=== PATIENT | male | born 1935 | race Caucasian/White ===

== ENCOUNTER 2018-10-04 14:37 | Inpatient (IN) | payer MEDICARE, MEDICAID ==
[~2018-10-04] VITALS: Ht 182.9 cm; Wt 131.2 kg
[2018-10-04] VITALS (10 sets, daily range): BP systolic 130–174; BP diastolic 60–113
[2018-10-04] MEDS ORDERED: SENN-161 PO (15:31)
[2018-10-04] MEDS ORDERED: FURO80TA87 PO (15:31)
[2018-10-04] MEDS ORDERED: ASPI-611 PO (15:31)
[2018-10-04] MEDS ORDERED: CLOP75TA15 PO (15:31)
[2018-10-04] MEDS ORDERED: DULR RC (15:31)
[2018-10-04] MEDS ORDERED: ALBU0.63 NEB (15:31)
[2018-10-04] MEDS ORDERED: HYDR-4383 PO (15:31)
[2018-10-04] MEDS ORDERED: NA P133E4 RC (15:31)
[2018-10-04] MEDS ORDERED: CLON0.1T20 PO (15:31)
[2018-10-04] MEDS ORDERED: DOCU-28 PO (15:31)
[2018-10-04] MEDS ORDERED: POTA10TA15 PO (15:31)
[2018-10-04] MEDS ORDERED: MAGN400O6 PO (15:31)
[2018-10-04] MEDS ORDERED: ALLO100T PO (15:31)
[2018-10-04] MEDS ORDERED: LEVO125T PO (15:31)
[2018-10-04] MEDS ORDERED: UBID100C16 PO (15:31)
[2018-10-04] MEDS ORDERED: ATOR40TA PO (15:31)
[2018-10-04] MEDS ORDERED: LIDOcaine 1% (10mg/ml)w/preservative injection 20ml MDV ONE (16:29)
[2018-10-04] MEDS ORDERED: heparin 1,000unit/ml 10ml vial 10 ML ONE (16:29)
[2018-10-04] MEDS ORDERED: iohexol 350MG/ML 100ml bottle IV ONE (16:30)
[2018-10-04] MEDS ORDERED: phenylephrine 10mg/ml inj. ONE (16:30)
[2018-10-04] MEDS ORDERED: iohexol 350 MG/ML 50ML vial IV ONE (16:30)
[2018-10-04] MEDS ORDERED: LORazepam 0.5 MG tablet PO PRN (16:45)
[2018-10-04] MEDS ORDERED: diphenhydrAMINE 25mg capsule PO PRN (16:45)
[2018-10-04] MEDS ORDERED: iohexol 350 MG/1 ML 200ml bottle ONE (17:32)
[2018-10-04] MEDS ORDERED: clopidogrel 300mg tablet ONE (17:40)
[2018-10-04] MEDS ORDERED: metoprolol tartrate 1mg/ml inj IV ONE (17:41)
[2018-10-04] MEDS: normal saline 1000ml 1,000 ML IV SCH (19:17)
[2018-10-04] MEDS ORDERED: HYDROcodone/acetaminophen 5mg/325mg tablet PO PRN ×2 (20:45→20:50)
[2018-10-04] MEDS ORDERED: bisacodyl 10mg suppository rectal RC PRN (20:45)
[2018-10-04] MEDS ORDERED: non-formulary drug (Na Phos,M-B/Na Phos,Di-Ba* (Fleet's Enema*) 1 BOTTLE) RC SCH (20:45)
[2018-10-04] MEDS ORDERED: magnesium hydroxide 30ml (MOM) UD suspension PO PRN (20:45)
[2018-10-04] MEDS: DOPamine 400mg/D5W 250ml 250 ML IV SCH (20:50)
[2018-10-04] MEDS ORDERED: proCHLORperazine 10 MG/2 ml inj IV PRN (20:50)
[2018-10-04] MEDS ORDERED: hydrALAZINE 20mg/ml inj. IV PRN (20:50)
[2018-10-04] MEDS ORDERED: OXAZEpam 15mg capsule PO PRN (20:50)
[2018-10-04] MEDS ORDERED: acetaminophen 325mg tablet PO PRN (20:50)
[2018-10-04] MEDS ORDERED: HYDROcodone/acetaminophen 10/325mg tab PO PRN (20:50)
[2018-10-04] MEDS ORDERED: pseudoephedrine 30mg tablet PO PRN (20:50)
[2018-10-04] MEDS ORDERED: cloNIDine 0.1 mg tablet PO SCH (21:00)
[2018-10-04] MEDS ORDERED: sennosides 8.6mg tablet PO SCH (21:00)
[2018-10-04] MEDS: furosemide 40mg tablet PO SCH (21:13)
[2018-10-04] MEDS: potassium chloride 10mEq ER tablet PO SCH (21:14)
[2018-10-05] MEDS: albuterol 2.5 MG/3 ML nebule NEB SCH ×2 (00:33→08:51)
[2018-10-05 02:07] VITALS: BP 127/42
[2018-10-05 02:21] VITALS: BP 132/64
[2018-10-05] MEDS: normal saline 1000ml 1,000 ML IV SCH (02:45)
[2018-10-05 03:00] VITALS: BP 132/64
[2018-10-05 06:34] LABS: BASOPHILS % (AUTO) 0.4 % (0-1); EOSINOPHILS # (AUTO) 0.2 X10'3 (0-0.9); EOSINOPHILS % (AUTO) 2.7 % (0-6); HEMATOCRIT 35.6 % (42.0-52.0); HEMOGLOBIN 11.7 g/dl (14.0-17.9); LYMPHOCYTES # (AUTO) 1.6 X10'3 (1.1-4.8); LYMPHOCYTES % (AUTO) 21.4 % (21-51); MEAN CORPUSCULAR HEMOGLOBIN 32.7 PG (27.0-31.0); MEAN CORPUSCULAR HGB CONC 32.8 % (33.0-36.5); MEAN CORPUSCULAR VOLUME 99.9 FL (78-98); MEAN PLATELET VOLUME 8.5 FL (7.4-10.4); MONOCYTES # (AUTO) 0.7 X10'3 (0-0.9); MONOCYTES % (AUTO) 9.3 % (2-12); NEUTROPHILS # (AUTO) 5.1 X10'3 (1.8-7.7); NEUTROPHILS % (AUTO) 66.2 % (42-75); PLATELET COUNT 169 X10'3 (140-440); RED BLOOD COUNT 3.56 X10'6 (4.70-6.10); WHITE BLOOD COUNT 7.6 X10'3 (4.5-11.0)
[2018-10-05 07:00] VITALS: BP 142/72
[2018-10-05] MEDS: DOPamine 400mg/D5W 250ml 250 ML IV SCH (07:00)
[2018-10-05] MEDS: furosemide 40mg tablet PO SCH (07:42)
[2018-10-05] MEDS: potassium chloride 10mEq ER tablet PO SCH (07:43)
[2018-10-05] MEDS ORDERED: aspirin 81mg tab.chew PO SCH (08:00)
[2018-10-05] MEDS ORDERED: atorvastatin 20mg tablet PO SCH (08:00)
[2018-10-05] MEDS ORDERED: allopurinol 100mg tablet PO SCH (08:00)
[2018-10-05] MEDS ORDERED: levoTHYROXINE 125mcg tablet PO SCH (08:00)
[2018-10-05] MEDS ORDERED: docusate sod 100mg capsule PO SCH (08:00)
[2018-10-05] MEDS ORDERED: non-formulary drug (Ubidecarenone (Coq-10) 100 MG) PO SCH (08:00)
[2018-10-05] MEDS ORDERED: clopidogrel 75mg tablet PO SCH (08:00)
[2018-10-05 09:04] LABS: ALBUMIN 2.8 G/DL (3.4-5.0); BLOOD UREA NITROGEN 29 MG/DL (7-18); BUN/CREATININE RATIO 20.3 (5.4-32.0); CALCIUM 8.8 MG/DL (8.5-10.1); CHOL/HDL RATIO 4.4 (0.00-4.99); CHOLESTEROL 141 MG/DL (0-200); CREATININE 1.43 MG/DL (0.60-1.10); GLUCOSE 192 MG/DL (70-104); HDL CHOLESTEROL 32 MG/DL (35-60); LDL CHOLESTEROL 75 MG/DL (50-100); MAGNESIUM 2.2 MG/DL (1.5-2.4); TOTAL CARBON DIOXIDE 30.3 MMOL/L (24-32); TRIGLYCERIDES 211 MG/DL (20-135); eGFR 47 ML/MIN
[2018-10-05 09:29] LABS: ANION GAP 9 (8-16); CHLORIDE 106 MMOL/L (99-107); POTASSIUM 3.8 MMOL/L (3.5-5.1); SODIUM 145 MMOL/L (135-145)
== END 2018-10-05 13:19 | disposition home or self-care (01) | DRG 35 ==
LOC: SSTAY O 14:37 → PCU 3S 18:30 → SSTAY O 18:49 → PCU 3S 18:49 → SSTAY O 10-05 13:19
PROVIDERS: ADMIT Internal Medicine Interventional Cardiology; ATTEND Internal Medicine Interventional Cardiology
PROC: 037L3DZ Dilation of Left Internal Carotid Artery with Intraluminal Device, Percutaneous Approach (ICD-10-PCS; principal; 2018-10-04)
PROC: B3101ZZ Fluoroscopy of Thoracic Aorta using Low Osmolar Contrast (ICD-10-PCS; 2018-10-04)
PROC: B3141ZZ Fluoroscopy of Left Common Carotid Artery using Low Osmolar Contrast (ICD-10-PCS; 2018-10-04)
PROC: B3171ZZ Fluoroscopy of Left Internal Carotid Artery using Low Osmolar Contrast (ICD-10-PCS; 2018-10-04)
PROC: B31B1ZZ Fluoroscopy of Left External Carotid Artery using Low Osmolar Contrast (ICD-10-PCS; 2018-10-04)
PROC: B41F1ZZ Fluoroscopy of Right Lower Extremity Arteries using Low Osmolar Contrast (ICD-10-PCS; 2018-10-04)
DX: I65.23 Occlusion and stenosis of bilateral carotid arteries (principal); J96.11 Chronic respiratory failure with hypoxia; N18.4 Chronic kidney disease, stage 4 (severe); I13.0 Hypertensive heart and chronic kidney disease with heart failure and stage 1 through stage 4 chronic kidney disease, or unspecified chronic kidney disease; M19.90 Unspecified osteoarthritis, unspecified site; L60.2 Onychogryphosis; E78.5 Hyperlipidemia, unspecified; E11.22 Type 2 diabetes mellitus with diabetic chronic kidney disease; J44.9 Chronic obstructive pulmonary disease, unspecified; E11.51 Type 2 diabetes mellitus with diabetic peripheral angiopathy without gangrene; I48.91 Unspecified atrial fibrillation; I50.9 Heart failure, unspecified; E03.9 Hypothyroidism, unspecified; Z79.899 Other long term (current) drug therapy; Z79.82 Long term (current) use of aspirin; Z79.890 Hormone replacement therapy; Z95.0 Presence of cardiac pacemaker; Z85.46 Personal history of malignant neoplasm of prostate
CPT/HCPCS: 36415; 37215; 80048; 80061; 82948; 83735; 85025; 93005; 94640; 94760; A4620; C1725; C1760; C1769; C1876; C1884; C1887; C1894; G0378; J1644; J2001; J2370; J3490; J7030; Q9967